=== PATIENT | female | born 1975 | race Caucasian/White ===

== ENCOUNTER → 2018-05-16 | Emergency (ER) | payer OTHER ==
[~2018-05-16] VITALS: Ht 157.5 cm; Wt 65.8 kg
[~2018-05-16] MED LIST: ACETAMINOPHEN-1 EAC1 PO; ACETAMINOPHEN325 M1 PO; ATIVAN1 MG PO; AZITHROMYCIN 2250 MG PO; BENTYL; BENTYL 10 MG CA10 MG; BENTYL 20 MG TA20 M1 PO; BUSPIRONE HCL10 MG; BUTALB-APAP-CA1 EACH PO; CIPROFLOXACIN500 M1 PO; DARVOCET-N 1001 EACH PO; ESTRACE0.5 MG; ESTRACE0.5 MG PO; ESTRACE1 MG PO; FIORICET 50-301 EACH PO; FIORICET 50-321 EACH PO; FIORICET PO; FLAGYL500 M1 PO; FLAGYL500 MG PO; FLEXERIL PO; HYDROCODON-ACE1 EAC7 PO; HYDROCODON-ACE1 EACH PO; HYDROCODONE-AP1 EAC6 PO; HYDROCODONE-APA1 TA1 PO; KEFLEX500 MG PO; KLONOPIN1 MG; LEVAQUIN 500 M500 M1 PO; LINZESS290 MCG PO; MEDROL DOSPAK21 TA1 PO; MEDROLDOSEPACK PO; MUSCLE RELAXER; NAPROSYN500 MG PO; NORCO 5-325 TA1 EACH PO; NORFLEX100 MG PO; NORTRIPTYLINE H10 M1 PO; ONDANSETRON HCL4 M2 PO; OXYCODON-ACETA1 EAC1 PO; PERCOCET 5-3251 EACH PO; PERCOCET 7.5-31 EACH PO; PERCOCET PO; PHENADOZ25 MG RC; PHENERGAN 25 MG25 M1; PHENERGAN 25 MG25 M1 PO; PHENERGAN 25 MG25 MG PO; PHENERGAN12.5 MG RE; PHENERGAN50 MG RC; PREMARIN; PROMS25 WY RECTAL; PROZAC10 MG PO; REGLAN 10 MG TA10 MG PO; ROBAXIN500 MG PO; SPIRIVA INH; TESSALON PERLE100 MG PO; TRAMADOL 50 MG50 MG PO; TRANSDERM-SCO1 PATC1 TRANSDERM; ULTRAM 50MG TAB50 MG PO; VICODIN 5-3001 EACH PO; VICODIN 5-5001 EACH PO; ZOFRAN ODT4 MG PO; ZOFRAN4 MG PO
[2018-05-16 17:57] LABS: ABSOLUTE BASOPHILS 0.2 thou/uL (0.0-0.2); ABSOLUTE EOSINOPHILS 0.1 thou/uL (0.0-0.7); ABSOLUTE MONOCYTES 0.8 thou/uL (0.0-1.2); ABSOLUTE NEUTROPHILS 12.7 thou/uL (1.6-8.1); BASOPHILS 1.1 %; EOSINOPHILS 0.7 %; HEMATOCRIT 37.5 % (37.0-47.0); HEMOGLOBIN 12.5 gm/dL (12.0-15.0); LYMPHOCYTES 12.5 %; MCH 30.1 pg (26.0-34.0); MCHC 33.4 g/dL (28.0-37.0); MCV 89.9 fL (80.0-100.0); MPV 7.3 fl. (7.2-11.1); NUCLEATED RBCS 0 /100WBC; PLATELET COUNT* 315 thou/uL (150-400); POLYS 80.7 %; RBC 4.17 mil/uL (4.20-5.00); RDW-CV 14.6 % (10.5-14.5); WBC 15.8 thou/uL (4.0-11.0)
[2018-05-16 18:11] LABS: CALCIUM 9.5 mg/dL (8.5-10.1); CREATININE 0.7 mg/dL (0.6-1.3); POTASSIUM 3.9 mmol/L (3.5-5.1)
[2018-05-16 18:16] LABS: ALBUMIN 3.6 g/dL (3.4-5.0); TOTAL BILIRUBIN 0.3 mg/dL (<0.1-1.0); TOTAL PROTEIN 7.6 g/dL (6.4-8.2)
[2018-05-16 18:36] LABS: URINE BILIRUBIN NEGATIVE (Negative); URINE BLOOD TRACE (Negative); URINE CLARITY CLEAR; URINE COLOR YELLOW; URINE GLUCOSE-RANDOM NEGATIVE (Negative); URINE KETONES NEGATIVE (Negative); URINE LEUKOCYTES-REFLEX NEGATIVE (Negative); URINE NITRITE-REFLEX NEGATIVE (Negative); URINE PROTEIN NEGATIVE (Negative); URINE SPECIFIC GRAVITY <= 1.005 (1.005-1.030); URINE UROBILINOGEN 0.2 E.U./dl (0.2-1.0)
[2018-05-16 21:09] VITALS: BP 117/66
== END ==
LOC: M.ERS 17:11
PROVIDERS: Personal Emergency Response Attendant
DX: K52.9 Noninfective gastroenteritis and colitis, unspecified (principal); N23 Unspecified renal colic; G43.909 Migraine, unspecified, not intractable, without status migrainosus; Z90.49 Acquired absence of other specified parts of digestive tract; Z90.710 Acquired absence of both cervix and uterus

== ENCOUNTER 2018-05-17 20:40 | Emergency (ER) | payer OTHER ==
[~2018-05-17] VITALS: Ht 157.5 cm; Wt 67.1 kg
[~2018-05-17 20:40] MED LIST changes: -PROMS25 WY RECTAL; -REGLAN 10 MG TA10 MG PO
[2018-05-17 22:11] LABS: ABSOLUTE BASOPHILS 0.1 thou/uL (0.0-0.2); ABSOLUTE EOSINOPHILS 0.1 thou/uL (0.0-0.7); ABSOLUTE LYMPHOCYTES 1.8 thou/uL (0.8-5.3); ABSOLUTE MONOCYTES 0.6 thou/uL (0.0-1.2); ABSOLUTE NEUTROPHILS 7.1 thou/uL (1.6-8.1); BASOPHILS 1.2 %; EOSINOPHILS 1.2 %; HEMATOCRIT 36.4 % (37.0-47.0); HEMOGLOBIN 12.2 gm/dL (12.0-15.0); LYMPHOCYTES 18.6 %; MCH 30.4 pg (26.0-34.0); MCHC 33.5 g/dL (28.0-37.0); MCV 90.9 fL (80.0-100.0); MONOCYTES 6.1 %; MPV 7.3 fl. (7.2-11.1); NUCLEATED RBCS 0 /100WBC; PLATELET COUNT* 252 thou/uL (150-400); POLYS 72.9 %; RBC 4.01 mil/uL (4.20-5.00); RDW-CV 14.6 % (10.5-14.5); WBC 9.8 thou/uL (4.0-11.0)
[2018-05-17 22:18] LABS: CALCIUM 9.2 mg/dL (8.5-10.1); CREATININE 0.7 mg/dL (0.6-1.3); POTASSIUM 3.8 mmol/L (3.5-5.1)
[2018-05-17 22:22] LABS: ALBUMIN 3.2 g/dL (3.4-5.0); TOTAL BILIRUBIN 0.3 mg/dL (<0.1-1.0); TOTAL PROTEIN 7.2 g/dL (6.4-8.2)
[2018-05-17 23:08] LABS: URINE BILIRUBIN NEGATIVE (Negative); URINE BLOOD TRACE (Negative); URINE CLARITY CLEAR; URINE COLOR YELLOW; URINE GLUCOSE-RANDOM NEGATIVE (Negative); URINE KETONES NEGATIVE (Negative); URINE LEUKOCYTES-REFLEX NEGATIVE (Negative); URINE NITRITE-REFLEX NEGATIVE (Negative); URINE PROTEIN NEGATIVE (Negative); URINE SPECIFIC GRAVITY <= 1.005 (1.005-1.030); URINE UROBILINOGEN 0.2 E.U./dl (0.2-1.0)
[2018-05-17 23:16] LABS: AMP/METHAMP Negative (Negative); BARBITURATES POSITIVE (Negative); BENZODIAZEPINES Negative (Negative); COCAINE Negative (Negative); METHADONE Negative (Negative); OPIATES Negative (Negative); PCP Negative (Negative); THC Negative (Negative)
[2018-05-17] MEDS ORDERED: PROMS25 WY RECTAL (23:26)
[2018-05-17] MEDS ORDERED: REGLAN 10 MG TA10 MG PO (23:26)
[2018-05-17 23:59] VITALS: BP 101/43
== END 2018-05-17 23:59 | disposition home or self-care (01) ==
LOC: M.ERS 20:40
PROVIDERS: Emergency Medicine
DX: K52.9 Noninfective gastroenteritis and colitis, unspecified (principal)

== ENCOUNTER 2018-09-05 02:16 | Emergency (ER) | payer OTHER ==
[~2018-09-05] VITALS: Ht 154.9 cm; Wt 72.2 kg
[~2018-09-05 02:16] MED LIST changes: +PROMS25 WY RECTAL; +REGLAN 10 MG TA10 MG PO
[2018-09-05 03:35] LABS: ABSOLUTE BASOPHILS 0.1 thou/uL (0.0-0.2); ABSOLUTE EOSINOPHILS 0.2 thou/uL (0.0-0.7); ABSOLUTE LYMPHOCYTES 3.7 thou/uL (0.8-5.3); ABSOLUTE MONOCYTES 0.8 thou/uL (0.0-1.2); ABSOLUTE NEUTROPHILS 5.9 thou/uL (1.6-8.1); BASOPHILS 0.8 %; HEMOGLOBIN 13.3 gm/dL (12.0-15.0); MCH 30.8 pg (26.0-34.0); MCHC 34.2 g/dL (28.0-37.0); MONOCYTES 7.4 %; MPV 7.5 fl. (7.2-11.1); NUCLEATED RBCS 0 /100WBC; PLATELET COUNT* 209 thou/uL (150-400); POLYS 54.8 %; RBC 4.33 mil/uL (4.20-5.00); RDW-CV 14.6 % (10.5-14.5); WBC 10.7 thou/uL (4.0-11.0)
[2018-09-05 03:54] LABS: ALBUMIN 3.5 g/dL (3.4-5.0); CALCIUM 8.9 mg/dL (8.5-10.1); POTASSIUM 4.1 mmol/L (3.5-5.1); TOTAL BILIRUBIN 0.2 mg/dL (<0.1-1.0)
[2018-09-05] MEDS ORDERED: PYRIDIUM200 M2 PO (05:00)
[2018-09-05 05:12] LABS: URINE BILIRUBIN NEGATIVE (Negative); URINE BLOOD 2+ (Negative); URINE CLARITY CLEAR; URINE COLOR YELLOW; URINE GLUCOSE-RANDOM NEGATIVE (Negative); URINE KETONES NEGATIVE (Negative); URINE LEUKOCYTES-REFLEX 1+ (Negative); URINE NITRITE-REFLEX NEGATIVE (Negative); URINE PROTEIN NEGATIVE (Negative); URINE SPECIFIC GRAVITY 1.015 (1.005-1.030); URINE UROBILINOGEN 0.2 E.U./dl (0.2-1.0)
[2018-09-05 05:21] VITALS: BP 92/51
[2018-09-05 05:43] LABS: BACTERIA-REFLEX 1-9 Few /HPF (None Seen); SQUAMOUS 0-3 Few /LPF (0-3); URINE WBC-REFLEX 6-15 Few /HPF (0-5)
[2018-09-05 05:44] LABS: CASTS None Seen /LPF (None Seen); CRYSTALS None Seen /LPF (None Seen); MUCUS 0-3 Light strn/LPF (None Seen)
== END 2018-09-05 05:22 | disposition home or self-care (01) ==
LOC: M.ERS 02:16
PROVIDERS: Personal Emergency Response Attendant
DX: R10.32 Left lower quadrant pain (principal); G43.909 Migraine, unspecified, not intractable, without status migrainosus; Z90.49 Acquired absence of other specified parts of digestive tract; Z90.710 Acquired absence of both cervix and uterus; F17.210 Nicotine dependence, cigarettes, uncomplicated; Z88.6 Allergy status to analgesic agent; Z88.8 Allergy status to other drugs, medicaments and biological substances

== ENCOUNTER 2019-04-02 19:07 | Emergency (ER) | payer OTHER ==
[~2019-04-02] VITALS: Ht 154.9 cm; Wt 66.7 kg
[~2019-04-02 19:07] MED LIST changes: +PYRIDIUM200 M2 PO
[2019-04-02] MEDS ORDERED: PROZAC10 M1 PO (19:21)
[2019-04-02] MEDS ORDERED: MEDROLDOSEPACK PO (19:39)
[2019-04-02 19:52] VITALS: BP 152/96
== END 2019-04-02 19:53 | disposition home or self-care (01) ==
LOC: M.ERS 19:07
DX: M54.5 Low back pain (principal); G43.909 Migraine, unspecified, not intractable, without status migrainosus; F17.210 Nicotine dependence, cigarettes, uncomplicated; Z90.710 Acquired absence of both cervix and uterus; Z90.49 Acquired absence of other specified parts of digestive tract; Z98.890 Other specified postprocedural states; Z88.1 Allergy status to other antibiotic agents; Z88.6 Allergy status to analgesic agent; Z88.8 Allergy status to other drugs, medicaments and biological substances

== ENCOUNTER 2021-02-14 16:14 | Emergency (ER) | payer OTHER ==
[~2021-02-14] VITALS: Ht 154.9 cm; Wt 81.7 kg
[~2021-02-14 16:14] MED LIST changes: +PROZAC10 M1 PO
[2021-02-14] MEDS ORDERED: DIAZEPAM 10 MG10 M1 PO (16:25)
[2021-02-14 19:01] VITALS: BP 111/61
== END 2021-02-14 19:01 | disposition home or self-care (01) ==
LOC: M.ERS 16:14
DX: S80.01XA Contusion of right knee, initial encounter (principal); G43.909 Migraine, unspecified, not intractable, without status migrainosus; F17.210 Nicotine dependence, cigarettes, uncomplicated; Z90.710 Acquired absence of both cervix and uterus; Z90.49 Acquired absence of other specified parts of digestive tract; Z98.890 Other specified postprocedural states; Z79.891 Long term (current) use of opiate analgesic; Z79.899 Other long term (current) drug therapy; Z88.6 Allergy status to analgesic agent; Z88.3 Allergy status to other anti-infective agents; Z88.5 Allergy status to narcotic agent; Z88.8 Allergy status to other drugs, medicaments and biological substances; V29.49XA Motorcycle driver injured in collision with other motor vehicles in traffic accident, initial encounter; Y93.89 Activity, other specified; Y92.89 Other specified places as the place of occurrence of the external cause; Y99.8 Other external cause status

== ENCOUNTER 2021-03-26 04:45 | Inpatient (IN) | payer OTHER ==
[2021-03-26] VITALS (10 sets, daily range): BP systolic 88–154; BP diastolic 48–74
[~2021-03-26] VITALS: Ht 152.4 cm; Wt 71.7 kg
[~2021-03-26 04:45] MED LIST changes: +DIAZEPAM 10 MG10 M1 PO
[2021-03-26] MEDS ORDERED: PROTONIX40 M2 (05:12)
[2021-03-26] MEDS ORDERED: DICYCLOMINE HCL20 MG (05:12)
[2021-03-26] MEDS ORDERED: PROZAC10 M1 PO (05:13)
[2021-03-26] MEDS ORDERED: PHENERGAN (05:14)
[2021-03-26 05:30] LABS: ABSOLUTE BASOPHILS 0.1 thou/uL (0.0-0.2); ABSOLUTE LYMPHOCYTES 1.7 thou/uL (0.8-5.3); ABSOLUTE MONOCYTES 0.4 thou/uL (0.0-1.2); ABSOLUTE NEUTROPHILS 11.2 thou/uL (1.6-8.1); BASOPHILS 0.6 %; EOSINOPHILS 0.2 %; HEMATOCRIT 35.5 % (37.0-47.0); HEMOGLOBIN 11.8 gm/dL (12.0-15.0); LYMPHOCYTES 12.6 %; MCH 28.4 pg (26.0-34.0); MCHC 33.3 g/dL (28.0-37.0); MCV 85.3 fL (80.0-100.0); MONOCYTES 3.2 %; MPV 7.2 fl. (7.2-11.1); NUCLEATED RBCS 0 /100WBC; PLATELET COUNT* 280 thou/uL (150-400); POLYS 83.4 %; RBC 4.16 mil/uL (4.20-5.00); RDW-CV 15.9 % (10.5-14.5); WBC 13.5 thou/uL (4.0-11.0)
[2021-03-26 05:41] LABS: INFLUENZA A ANTIGEN Negative (Negative); INFLUENZA B ANTIGEN Negative (Negative)
[2021-03-26 05:48] LABS: BE 3.6 mmol/L (-2 to +3); PCO2 33.7 mmHg (35.0-45.0); PO2 103.4 mmHg (75.0-100.0); pH 7.512 (7.340-7.450)
[2021-03-26 06:19] LABS: CALCIUM 8.8 mg/dL (8.5-10.1); CREATININE 0.7 mg/dL (0.6-1.3); POTASSIUM 3.3 mmol/L (3.5-5.1)
[2021-03-26 06:39] LABS: TOTAL BILIRUBIN 0.2 mg/dL (<0.1-1.0); TOTAL PROTEIN 6.4 g/dL (6.4-8.2)
[2021-03-26 06:40] LABS: ALBUMIN 2.7 g/dL (3.4-5.0)
[2021-03-26] MEDS ORDERED: DIAZEPAM 5 MG5 M1 PO (10:42)
[2021-03-26] MEDS ORDERED: HYDROCODON-ACE1 EAC7 PO (10:42)
[2021-03-26] MEDS ORDERED: PHENERGAN 25 MG25 M1 PO (10:44)
[2021-03-26 11:55] LABS: BE 4.3 mmol/L (-2 to +3); PCO2 36.7 mmHg (35.0-45.0); pH 7.494 (7.340-7.450)
[2021-03-26 12:01] LABS: PO2 53.7 mmHg (75.0-100.0)
--- NOTE | 2021-03-26 14:35 | EKG ---
[place] [address] ELECTROCARDIOGRAM REPORT Name: RHEA LOJA Room: [address] ADM IN M.R.#: [id number] Admission: 03/26/21 Attend Phys: Marixa Sheffield, Discharge: Date of : 77 Date of Service: 03/26/21 0502 Report #: [id number] THIS REPORT FOR: //name// 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
[2021-03-27] VITALS (34 sets, daily range): BP systolic 74–121; BP diastolic 35–73
[2021-03-27 04:11] LABS: HEMATOCRIT 31.9 % (37.0-47.0); HEMOGLOBIN 10.6 gm/dL (12.0-15.0); MCH 28.6 pg (26.0-34.0); MCHC 33.2 g/dL (28.0-37.0); MPV 7.1 fl. (7.2-11.1); RBC 3.7 mil/uL (4.20-5.00); RDW-CV 15.7 % (10.5-14.5); WBC 10.6 thou/uL (4.0-11.0)
[2021-03-27 04:21] LABS: ALBUMIN 2.2 g/dL (3.4-5.0); CREATININE 0.5 mg/dL (0.6-1.3); MAGNESIUM 2.1 mg/dL (1.8-2.4); TOTAL BILIRUBIN 0.2 mg/dL (<0.1-1.0); TOTAL PROTEIN 6.6 g/dL (6.4-8.2)
[2021-03-27 04:28] LABS: POTASSIUM 4.5 mmol/L (3.5-5.1)
[2021-03-28] VITALS (11 sets, daily range): BP systolic 94–121; BP diastolic 57–72
[2021-03-28 03:44] LABS: HEMATOCRIT 31.8 % (37.0-47.0); HEMOGLOBIN 10.5 gm/dL (12.0-15.0); MCH 28.4 pg (26.0-34.0); MPV 7.1 fl. (7.2-11.1); RBC 3.7 mil/uL (4.20-5.00); RDW-CV 15.9 % (10.5-14.5); WBC 9.5 thou/uL (4.0-11.0)
[2021-03-28 04:03] LABS: ALBUMIN 2.4 g/dL (3.4-5.0); CALCIUM 9.2 mg/dL (8.5-10.1); CREATININE 0.5 mg/dL (0.6-1.3); MAGNESIUM 2.2 mg/dL (1.8-2.4); POTASSIUM 4.2 mmol/L (3.5-5.1); TOTAL BILIRUBIN 0.2 mg/dL (<0.1-1.0)
--- NOTE | 2021-03-28 14:52 | 2DMMODE ---
[place] [address] 2 D/M-MODE ECHOCARDIOGRAM Name: CAITLINJayceeRHEA BURNS Room: 002P ADM IN .R.#: [id number] Admission: 03/26/21 Attend Phys: Marixa Sheffield, Discharge: Date of : 77 Date of Service: 03/28/21 1452 Report #: [id number] THIS REPORT FOR: cc: Darrell Romero Ghaison F. DO Holkins, John M. MD [facility] ~ APPROVED REPORT Study performed: 03/28/2021 11:50:22 EXAM: Comprehensive 2D, Doppler, and color-flow Echocardiogram Patient Location: In-Patient Room #: 002 Status: routine BSA: 1.69 HR: 72 bpm BP: 105/67 mmHg Rhythm: NSR Other Information Study Quality: Good Indications resp failure 2D Dimensions IVSd: 8.87 (7-11mm) LVOT Diam: 20.84 (18-24mm) LVDd: 44.51 mm PWd: 8.25 (7-11mm) Ascending Ao: 27.81 (22-36mm) LVDs: 28.40 (25-40mm) Aortic Root: 29.03 mm Volumes Left Atrial Volume (Systole) LA ESV Index: 29.50 mL/m2 Aortic Valve AoV Peak Tavon.: 1.41 m/s AO Peak Gr.: 7.97 mmHg LVOT Max P.14 mmHg AO Mean Gr.: 4.10 mmHg LVOT Mean P.94 mmHg LVOT Max V: 1.43 m/s AO V2 VTI: 28.01 cm LVOT Mean V: 0.77 m/s MARJORIE (VTI): 3.51 cm2 LVOT V1 VTI: 28.80 [place] [address] 2 D/M-MODE ECHOCARDIOGRAM Name: RHEA LOJA Room: [address] IN .R.#: [id number] Admission: 03/26/21 Attend Phys: Marixa Sheffield, Discharge: Date of : 77 Date of Service: 03/28/21 1452 Report #: [id number] Mitral Valve E/A Ratio: 1.82 MV Decel. Time: 176.21 ms MV E Max Tavon.: 1.08 m/s MV PHT: 51.10 ms MVA (PHT): 4.31 cm2 TDI E/Lateral E': 6.75 E/Medial E': 7.20 Medial E' Tavon.: 0.15 m/s Lateral E' Tavon.: 0.16 m/s Pulmonary Valve PV Peak Tavon.: 0.90 m/s PV Peak Gr.: 3.27 mmHg Tricuspid Valve RAP Estimate: 5.00 mmHg TR Peak Gr.: 27.45 mmHg RVSP: 32.00 mmHg PA Pressure: 32.00 mmHg Left Ventricle The left ventricle is normal size. There is normal LV segmental wall motion. There is normal left ventricular wall thickness. Left ventricular systolic function is normal. The left ventricular ejection fraction is within the normal range. LVEF is 55-60%. The left ventricular diastolic function is normal. Right Ventricle The right ventricle is normal size. The right ventricular systolic function is normal. Atria The left atrium size is normal. The right atrium size is normal. Aortic Valve The aortic valve is normal in structure. No aortic regurgitation is present. There is no aortic valvular stenosis. Mitral Valve The mitral valve is normal in structure. Mild mitral regurgitation. No evidence of mitral valve stenosis. Tricuspid Valve The tricuspid valve is normal in structure. Mild tricuspid regurgitation. [place] [address] 2 D/M-MODE ECHOCARDIOGRAM Name: RHEA LOJA Room: [address] IN .R.#: [id number] Admission: 03/26/21 Attend Phys: Marixa Sheffield, Discharge: Date of : 77 Date of Service: 03/28/21 1452 Report #: [id number] Pulmonic Valve The pulmonary valve is normal in structure. There is no pulmonic valvular regurgitation. Great Vessels The aortic root is normal in size. IVC is normal in size and collapses >50% with inspiration. Pericardium There is no pericardial effusion. <Conclusion> The left ventricle is normal size. There is normal left ventricular wall thickness. Left ventricular systolic function is normal. The left ventricular ejection fraction is within the normal range. LVEF is 55-60%. The left ventricular diastolic function is normal. The right ventricle is normal size. The left atrium size is normal. The aortic valve is normal in structure. The mitral valve is normal in structure. Mild mitral regurgitation. The tricuspid valve is normal in structure. Mild tricuspid regurgitation. Mild pulmonary hypertension. IVC is normal in size and collapses >50% with inspiration. There is no pericardial effusion. There is normal LV segmental wall motion. <ELECTRONICALLY SIGNED> By: Steven Schreiber MD, FACC 03/28/21 1452 51 [id number] Steven Schreiber MD, FACC /INF
[2021-03-29] VITALS (20 sets, daily range): BP systolic 80–126; BP diastolic 34–68
[2021-03-29 03:43] LABS: ABSOLUTE BASOPHILS 0.1 thou/uL (0.0-0.2); ABSOLUTE LYMPHOCYTES 1.1 thou/uL (0.8-5.3); ABSOLUTE MONOCYTES 0.7 thou/uL (0.0-1.2); ABSOLUTE NEUTROPHILS 8.9 thou/uL (1.6-8.1); BASOPHILS 0.6 %; EOSINOPHILS 0.1 %; HEMATOCRIT 33.3 % (37.0-47.0); LYMPHOCYTES 9.9 %; MCH 28.2 pg (26.0-34.0); MCHC 32.9 g/dL (28.0-37.0); MCV 85.8 fL (80.0-100.0); MONOCYTES 6.1 %; NUCLEATED RBCS 0 /100WBC; PLATELET COUNT* 323 thou/uL (150-400); POLYS 83.3 %; RBC 3.88 mil/uL (4.20-5.00); RDW-CV 15.4 % (10.5-14.5); WBC 10.7 thou/uL (4.0-11.0)
[2021-03-29 04:01] LABS: ALBUMIN 2.5 g/dL (3.4-5.0); CALCIUM 9.3 mg/dL (8.5-10.1); CREATININE 0.7 mg/dL (0.6-1.3); MAGNESIUM 1.9 mg/dL (1.8-2.4); PHOSPHORUS* 3.8 mg/dL (2.5-4.9); POTASSIUM 3.7 mmol/L (3.5-5.1); TOTAL BILIRUBIN 0.3 mg/dL (<0.1-1.0); TOTAL PROTEIN 7.2 g/dL (6.4-8.2)
[2021-03-29 20:49] LABS: URINE BILIRUBIN NEGATIVE (Negative); URINE BLOOD NEGATIVE (Negative); URINE CLARITY CLEAR; URINE COLOR YELLOW; URINE GLUCOSE-RANDOM NEGATIVE (Negative); URINE KETONES NEGATIVE (Negative); URINE LEUKOCYTES-REFLEX NEGATIVE (Negative); URINE NITRITE-REFLEX NEGATIVE (Negative); URINE PROTEIN NEGATIVE (Negative); URINE UROBILINOGEN 0.2 E.U./dl (0.2-1.0)
[2021-03-30] VITALS (7 sets, daily range): BP systolic 97–117; BP diastolic 49–73
[2021-03-30 06:07] LABS: HEMATOCRIT 34.3 % (37.0-47.0); HEMOGLOBIN 11.4 gm/dL (12.0-15.0); MCH 28.3 pg (26.0-34.0); MCHC 33.3 g/dL (28.0-37.0); MCV 85.2 fL (80.0-100.0); MPV 6.6 fl. (7.2-11.1); NUCLEATED RBCS 0 /100WBC; PLATELET COUNT* 349 thou/uL (150-400); RBC 4.03 mil/uL (4.20-5.00); RDW-CV 15.9 % (10.5-14.5); WBC 9.4 thou/uL (4.0-11.0)
[2021-03-30 06:15] LABS: CALCIUM 9.2 mg/dL (8.5-10.1); CREATININE 0.7 mg/dL (0.6-1.3); MAGNESIUM 2.4 mg/dL (1.8-2.4); POTASSIUM 4.1 mmol/L (3.5-5.1)
[2021-03-30 08:22] LABS: ABSOLUTE LYMPHOCYTES 2.5 thou/uL (0.8-5.3); ABSOLUTE MONOCYTES 0.3 thou/uL (0.0-1.2); ABSOLUTE NEUTROPHILS 6.6 thou/uL (1.6-8.1)
[2021-03-31] VITALS (8 sets, daily range): BP systolic 94–116; BP diastolic 45–69
[2021-03-31 04:55] LABS: HEMATOCRIT 34.9 % (37.0-47.0); HEMOGLOBIN 11.6 gm/dL (12.0-15.0); MCH 28.2 pg (26.0-34.0); MCHC 33.1 g/dL (28.0-37.0); MCV 85.3 fL (80.0-100.0); MPV 6.3 fl. (7.2-11.1); RBC 4.1 mil/uL (4.20-5.00); RDW-CV 15.4 % (10.5-14.5); WBC 12.9 thou/uL (4.0-11.0)
[2021-03-31 05:22] LABS: ALBUMIN 2.7 g/dL (3.4-5.0); CALCIUM 8.9 mg/dL (8.5-10.1); CREATININE 0.7 mg/dL (0.6-1.3); POTASSIUM 3.8 mmol/L (3.5-5.1); TOTAL BILIRUBIN 0.2 mg/dL (<0.1-1.0); TOTAL PROTEIN 6.7 g/dL (6.4-8.2)
[2021-03-31 15:06] LABS: CALCIUM 8.8 mg/dL (8.5-10.1); CREATININE 0.6 mg/dL (0.6-1.3); MAGNESIUM 2.1 mg/dL (1.8-2.4); POTASSIUM 4.3 mmol/L (3.5-5.1)
[2021-03-31 22:06] LABS: MYCOPLASMA PNEUMONIA IgG <100 U/mL (0-99); MYCOPLASMA PNEUMONIA IgM <770 U/mL (0-769)
[2021-04-01 03:19] VITALS: BP 91/51
[2021-04-01 06:04] LABS: ALBUMIN 2.7 g/dL (3.4-5.0); CREATININE 0.6 mg/dL (0.6-1.3); MAGNESIUM 2.1 mg/dL (1.8-2.4); POTASSIUM 3.4 mmol/L (3.5-5.1); TOTAL BILIRUBIN 0.2 mg/dL (<0.1-1.0); TOTAL PROTEIN 6.5 g/dL (6.4-8.2)
[2021-04-01 06:27] VITALS: BP 100/52
[2021-04-01 06:50] LABS: HEMATOCRIT 35.9 % (37.0-47.0); HEMOGLOBIN 11.5 gm/dL (12.0-15.0); MCH 27.5 pg (26.0-34.0); MPV 6.7 fl. (7.2-11.1); RBC 4.17 mil/uL (4.20-5.00); RDW-CV 15.9 % (10.5-14.5); WBC 13.5 thou/uL (4.0-11.0)
[2021-04-01 08:00] VITALS: BP 84/63
[2021-04-01 12:00] VITALS: BP 91/51
[2021-04-01 16:00] VITALS: BP 121/70
[2021-04-01 20:00] VITALS: BP 128/76
[2021-04-02] VITALS: BP 152/93
[2021-04-02 04:00] VITALS: BP 121/78
[2021-04-02 08:40] LABS: HEMATOCRIT 35.2 % (37.0-47.0); HEMOGLOBIN 11.4 gm/dL (12.0-15.0); MCH 27.6 pg (26.0-34.0); MCHC 32.4 g/dL (28.0-37.0); MCV 85.2 fL (80.0-100.0); MPV 6.7 fl. (7.2-11.1); RBC 4.13 mil/uL (4.20-5.00); RDW-CV 15.8 % (10.5-14.5); WBC 14.7 thou/uL (4.0-11.0)
[2021-04-02 08:57] LABS: ALBUMIN 2.9 g/dL (3.4-5.0); CALCIUM 9.2 mg/dL (8.5-10.1); CREATININE 0.7 mg/dL (0.6-1.3); MAGNESIUM 1.9 mg/dL (1.8-2.4); POTASSIUM 4.1 mmol/L (3.5-5.1); TOTAL BILIRUBIN 0.2 mg/dL (<0.1-1.0); TOTAL PROTEIN 6.7 g/dL (6.4-8.2)
[2021-04-02 09:00] VITALS: BP 103/63
[2021-04-02] MEDS ORDERED: TESSALON PERLE100 MG PO (10:01)
[2021-04-02] MEDS ORDERED: PROAIR HFA8.5 GM INH (10:05)
[2021-04-02] MEDS ORDERED: PREDNISONE 10 M10 MG PO (10:05)
[2021-04-02 11:48] VITALS: BP 103/63
== END 2021-04-02 11:58 | disposition home or self-care (01) | DRG 193 ==
LOC: M.ERS 04:45 → M.ORTHSURG 06:09 → M.TBA-ER 06:09 → M.ORTHSURG 08:51 → M.ICU 14:26 → M.2W 03-30 16:27
PROVIDERS: Emergency Medicine; Internal Medicine Critical Care Medicine; ADMIT Internal Medicine; ATTEND Internal Medicine
PROC: 5A09357 Assistance with Respiratory Ventilation, Less than 24 Consecutive Hours, Continuous Positive Airway Pressure (ICD-10-PCS; principal; 2021-03-26)
PROC: 5A0935A Assistance with Respiratory Ventilation, Less than 24 Consecutive Hours, High Flow/Velocity Cannula (ICD-10-PCS; principal; 2021-03-26)
PROC: 5A0935A Assistance with Respiratory Ventilation, Less than 24 Consecutive Hours, High Flow/Velocity Cannula (ICD-10-PCS; 2021-03-27)
PROC: 5A09357 Assistance with Respiratory Ventilation, Less than 24 Consecutive Hours, Continuous Positive Airway Pressure (ICD-10-PCS; 2021-03-28)
PROC: 5A0935A Assistance with Respiratory Ventilation, Less than 24 Consecutive Hours, High Flow/Velocity Cannula (ICD-10-PCS; 2021-03-28)
PROC: 5A09357 Assistance with Respiratory Ventilation, Less than 24 Consecutive Hours, Continuous Positive Airway Pressure (ICD-10-PCS; 2021-03-29)
PROC: 02HV33Z Insertion of Infusion Device into Superior Vena Cava, Percutaneous Approach (ICD-10-PCS; 2021-03-29)
PROC: 5A0935A Assistance with Respiratory Ventilation, Less than 24 Consecutive Hours, High Flow/Velocity Cannula (ICD-10-PCS; 2021-03-30)
PROC: 5A09357 Assistance with Respiratory Ventilation, Less than 24 Consecutive Hours, Continuous Positive Airway Pressure (ICD-10-PCS; 2021-03-30)
PROC: 5A0935A Assistance with Respiratory Ventilation, Less than 24 Consecutive Hours, High Flow/Velocity Cannula (ICD-10-PCS; 2021-03-31)
DX: J18.9 Pneumonia, unspecified organism (principal); J80 Acute respiratory distress syndrome; E46 Unspecified protein-calorie malnutrition; J00 Acute nasopharyngitis [common cold]; F17.210 Nicotine dependence, cigarettes, uncomplicated; R59.1 Generalized enlarged lymph nodes; D64.9 Anemia, unspecified; I95.9 Hypotension, unspecified; K58.9 Irritable bowel syndrome, unspecified; Z20.822 Contact with and (suspected) exposure to COVID-19; Z88.6 Allergy status to analgesic agent; Z88.8 Allergy status to other drugs, medicaments and biological substances; Z90.710 Acquired absence of both cervix and uterus; Z90.49 Acquired absence of other specified parts of digestive tract; Z68.30 Body mass index [BMI] 30.0-30.9, adult

== ENCOUNTER 2021-04-10 04:43 | Emergency (ER) | payer OTHER ==
[~2021-04-10] VITALS: Ht 154.9 cm; Wt 68.5 kg
[~2021-04-10 04:43] MED LIST changes: +DIAZEPAM 5 MG5 M1 PO; +DICYCLOMINE HCL20 MG; +PHENERGAN; +PREDNISONE 10 M10 MG PO; +PROAIR HFA8.5 GM INH; +PROTONIX40 M2
[2021-04-10] MEDS ORDERED: NYSTATIN100000 UNI SW&SWALLOW (05:00)
[2021-04-10 05:20] VITALS: BP 136/70
== END 2021-04-10 05:22 | disposition home or self-care (01) ==
LOC: M.ERS 04:43
DX: B37.81 Candidal esophagitis (principal); B37.0 Candidal stomatitis; G43.909 Migraine, unspecified, not intractable, without status migrainosus; F17.210 Nicotine dependence, cigarettes, uncomplicated; Z90.710 Acquired absence of both cervix and uterus; Z90.49 Acquired absence of other specified parts of digestive tract; Z79.899 Other long term (current) drug therapy; Z88.6 Allergy status to analgesic agent; Z88.8 Allergy status to other drugs, medicaments and biological substances

== ENCOUNTER 2021-05-17 17:32 | Emergency (ER) | payer OTHER ==
[~2021-05-17] VITALS: Ht 154.9 cm; Wt 68.0 kg
[~2021-05-17 17:32] MED LIST changes: +NYSTATIN100000 UNI SW&SWALLOW
[2021-05-17] MEDS ORDERED: FLEXERIL PO (19:58)
[2021-05-17 20:10] VITALS: BP 138/74
== END 2021-05-17 20:10 | disposition home or self-care (01) ==
LOC: M.ERS 17:32
DX: M25.511 Pain in right shoulder (principal); G43.909 Migraine, unspecified, not intractable, without status migrainosus; F17.210 Nicotine dependence, cigarettes, uncomplicated; Z98.890 Other specified postprocedural states; Z90.710 Acquired absence of both cervix and uterus; Z79.51 Long term (current) use of inhaled steroids; Z79.891 Long term (current) use of opiate analgesic; Z79.899 Other long term (current) drug therapy; Z88.8 Allergy status to other drugs, medicaments and biological substances; Z88.6 Allergy status to analgesic agent; V49.3XXA Car occupant (driver) (passenger) injured in unspecified nontraffic accident, initial encounter; Y93.89 Activity, other specified; Y92.89 Other specified places as the place of occurrence of the external cause; Y99.8 Other external cause status